=== PATIENT | female | born 1975 | race Asian ===

== ENCOUNTER 2018-10-01 07:25 | Inpatient (IN) | payer OTHER, SELFPAY ==
[2018-10-01 08:10] LABS: Bilirubin,Urine NEG (Negative); Blood,Urine SM (Negative); Color,Urine Yellow (Yellow); Mucus,Urine FEW /HPF; Urobilinogen,Urine < 2.0 mg/dL (<2.0)
[2018-10-01 08:12] LABS: HCG Qualitative,Urine Negative (Negative)
--- NOTE | 2018-10-01 08:13 | Emergency Department Report ---
ED Abdominal Pain HPI - General Chief Complaint: Abdominal Pain Stated Complaint: ABD PAIN/HEADACHES Time Seen by Provider: 10/01/18 08:05 Source: patient, family Mode of arrival: Ambulatory Limitations: Language Barrier - History of Present Illness Initial Comments: Patient is 43 years old female with no significant past medical history. Patient presented to the ER complaining of suprapubic pain for the last 4 days associated with fever and chills and increased urinary frequency, dysuria and urgency. Patient denied any hematuria, vaginal discharge or vaginal bleeding. She stated that her cycle started yesterday and it is regular. Patient denied any nausea, vomiting or diarrhea. MD Complaint: abdominal pain -: days(s) Location: suprapubic Radiation: none Migration to: no migration Quality: sharp Consistency: constant - Related Data Allergies Allergy/AdvReac Type Severity Reaction Status Date / Time No Known Allergies Allergy Verified 10/01/18 09:25 ED Review of Systems ROS: Stated complaint: ABD PAIN/HEADACHES Other details as noted in HPI Comment: All other systems reviewed and negative Constitutional: chills, fever ENT: denies: ear pain, throat pain Cardiovascular: denies: chest pain, palpitations, dyspnea on exertion, orthopnea, edema, syncope, paroxysmal nocturnal dyspnea Gastrointestinal: abdominal pain. denies: nausea, vomiting, diarrhea, constipation, hematemesis, melena, hematochezia Genitourinary: urgency, dysuria, frequency. denies: abnormal menses Neurological: denies: headache, weakness, numbness, paresthesias, confusion ED Past Medical Hx - Past Medical History Previous Medical History?: No - Surgical History Past Surgical History?: No - Social History Smoking Status: Never Smoker Substance Use Type: None ED Physical Exam - General Limitations: Language Barrier General appearance: alert, in no apparent distress - Head Head exam: Present: atraumatic, normocephalic, normal inspection - Eye Eye exam: Present: normal appearance - ENT ENT exam: Present: normal exam, normal orophraynx, mucous membranes moist - Neck Neck exam: Present: normal inspection, full ROM. Absent: tenderness, meningismus, lymphadenopathy, thyromegaly - Respiratory Respiratory exam: Present: normal lung sounds bilaterally. Absent: respiratory distress, wheezes, rales, rhonchi, stridor, chest wall tenderness, accessory muscle use, decreased breath sounds, prolonged expiratory - Cardiovascular Cardiovascular Exam: Present: regular rate, normal rhythm, normal heart sounds - GI/Abdominal GI/Abdominal exam: Present: soft, tenderness (right lower quadrant tenderness, suprapubic tenderness), normal bowel sounds. Absent: distended, guarding, rebound, rigid, diminished bowel sounds, organomegaly, mass, bruit, pulsatile mass, hernia - Extremities Exam Extremities exam: Present: normal inspection, full ROM, normal capillary refill. Absent: tenderness, pedal edema, joint swelling, calf tenderness - Back Exam Back exam: Present: normal inspection, full ROM. Absent: CVA tenderness (R), CVA tenderness (L), muscle spasm, paraspinal tenderness, vertebral tenderness, rash noted - Neurological Exam Neurological exam: Present: alert, oriented X3, CN II-XII intact, normal gait, reflexes normal - Skin Skin exam: Present: warm, intact, normal color ED Course Vital Signs 10/01/18 10/01/18 07:33 10:56 Temperature 99.1 F Pulse Rate 110 H Respiratory 18 16 Rate Blood Pressure 110/54 O2 Sat by Pulse 100 Oximetry - Consultations Consultation #1: 10/01/18 11:09 I discussed the patient with Dr. Easley, she had been advised to admit the patient to the hospital and she will follow-up with the patient. ED Medical Decision Making - Lab Data Result diagrams: 10/01/18 Unknown 10/01/18 Unknown - Radiology Data Radiology results: report reviewed Referring Physician: CHETAN WINN Patient Name: FEMI BRAND Date of : 1975 Sex: Female Report Date: 2018-10-01 Report Status: Finalized Findings [address] [address] Cat Scan Report Signed Patient: FEMI BRAND MR#: [id number] : 1975 Acct:[id number] Age/Sex: 43 / F ADM Date: 10/01/18 Loc: ED Attending Dr: Ordering Physician: CHETAN WINN Date of Service: 10/01/18 Procedure(s): CT abdomen pelvis w con Accession Number(s): [id number] cc: CHETAN WINN FINAL REPORT EXAM: CT ABDOMEN PELVIS W CON HISTORY: abdominal pain, right lower quadrant tenderness, TECHNIQUE: CT abdomen and pelvis performed. Images extend from diaphragm to pubic symphysis. IV contrast was administered. No oral contrast was administered. Axial images and coronal and sagittal reformatted images were obtained. PRIORS: None. FINDINGS: There prominent inflammatory changes in the right lower quadrant. There are extraluminal gas bubbles this area. Findings are compatible with ruptured acute appendicitis. Appendix margins are not well visualized. There is a 2 cm fluid collection in the right lower quadrant which could be a developing abscess. There is no gross free intraperitoneal air seen. The visualized liver, spleen, pancreas, adrenal glands and kidneys demonstrate no significant abnormalities. There is no abdominal aortic aneurysm. There is no evidence of intestinal obstruction. The bladder is unremarkable. IMPRESSION: Findings are compatible with ruptured acute appendicitis. There are extraluminal gas bubbles in the right lower quadrant but no gross free air seen. There is a 2 cm fluid collection which may be a developing small abscess. Transcribed By: CIERRA Dictated By: STEFANIE HERNANDEZ MD Electronically Authenticated By: STEFANIE HERNANDEZ MD Signed Date/Time: 10/01/181050 DD/ 53 TD/TT: 10/01/18 105 - Medical Decision Making Patient is 43 years old female with no significant past medical history. Patient presented to the ER complaining of suprapubic pain for the last 4 days associated with fever and chills and increased urinary frequency, dysuria and urgency. Patient denied any hematuria, vaginal discharge or vaginal bleeding. She stated that her cycle started yesterday and it is regular. Patient denied any nausea, vomiting or diarrhea. Patient found to have a rupture appendicitis. I discussed the patient is Dr. Easley. Patient received Rocephin initially and then Zosyn per . Discussed the patient is Dr. Veras, he agreed to admit the patient to medical service. Critical Care Time: Yes Critical care time in (mins) excluding proc time.: 30 Critical care attestation.: If time is entered above; I have spent that time in minutes in the direct care of this critically ill patient, excluding procedure time. ED Disposition Clinical Impression: Acute appendicitis with rupture Disposition: OP ADMIT IP TO THIS HOSP Is pt being admited?: Yes Condition: Stable Instructions: Abdominal Pain (ED) Referrals: PRIMARY CARE, [Primary Care Provider] - 3-5 Days
[2018-10-01] MEDS ORDERED: ZOFRAN IV ONE (08:15)
[2018-10-01] MEDS ORDERED: MORPHINE IV ONE (08:15)
[2018-10-01] MEDS ORDERED: NACL 0.9% 1000 ML 1,000 ML IV ONE (08:15)
[2018-10-01 09:09] LABS: Hematocrit 38.4 % (30.3-42.9); Hemoglobin 12.8 gm/dl (10.1-14.3); Mean Corpuscular HGB Conc 33 % (30-34); Mean Corpuscular Volume 94 fl (79-97); Platelet Count 251 K/mm3 (140-440); Red Cell Distribution Width 13.1 % (13.2-15.2)
[2018-10-01] MEDS ORDERED: ROCEPHIN/NS 1 GM/50 ML 1 GM/50 ML BAG IV ONE (09:15)
[2018-10-01 09:20] LABS: Calcium 8.9 mg/dL (8.4-10.2)
[2018-10-01 09:22] LABS: Alanine Aminotransferase 12 units/L (7-56); Albumin 3.8 g/dL (3.9-5)
[2018-10-01 09:29] LABS: Bilirubin,Direct < 0.2 mg/dL (0-0.2)
[2018-10-01 10:16] LABS: Band Neutrophils # (Manual) 0.2 K/mm3; Basophils % (Manual) 0 % (0.0-1.8); Eosinophils % (Manual) 0 % (0.0-4.3); Platelet Estimate Consistent w Auto; RBC Morphology Normal; Total Cells Counted 100
--- NOTE | 2018-10-01 10:51 | Cat Scan Report ---
FINAL REPORT EXAM: CT ABDOMEN PELVIS W CON HISTORY: abdominal pain, right lower quadrant tenderness, TECHNIQUE: CT abdomen and pelvis performed. Images extend from diaphragm to pubic symphysis. IV co ntrast was administered. No oral contrast was administered. Axial images and coronal and sagittal ref ormatted images were obtained. PRIORS: None. FINDINGS: There prominent inflammatory changes in the right lower quadrant. There are extraluminal g as bubbles this area. Findings are compatible with ruptured acute appendicitis. Appendix margins are not well visualized. There is a 2 cm fluid collection in the right lower quadrant which could be a de veloping abscess. There is no gross free intraperitoneal air seen. The visualized liver, spleen, pancreas, adrenal glands and kidneys demonstrate no significant abnorma lities. There is no abdominal aortic aneurysm. There is no evidence of intestinal obstruction. The bladder is unremarkable. IMPRESSION: Findings are compatible with ruptured acute appendicitis. There are extraluminal gas franco bles in the right lower quadrant but no gross free air seen. There is a 2 cm fluid collection which m ay be a developing small abscess.
[2018-10-01] MEDS ORDERED: ZOSYN/NS 3.375GM/50ML 3.375 GM/50 ML BAG IV ONE (11:09)
[2018-10-01] MEDS ORDERED: NACL 0.9% 1000 ML IV ONE (11:55)
[2018-10-01] MEDS ORDERED: TYLENOL PO PRN (11:55)
[2018-10-01] MEDS ORDERED: MORPHINE IV PRN (11:55)
[2018-10-01] MEDS ORDERED: ZOFRAN IV PRN (11:55)
[2018-10-01] MEDS ORDERED: PROVENTIL IH PRN (11:55)
[2018-10-01] MEDS ORDERED: SODIUM CHLORIDE FLUSH SYRINGE 10 ML IV PRN (11:55)
--- NOTE | 2018-10-01 11:58 | History and Physical Report ---
History of Present Illness Chief complaint: My stomach hurts History of present illness: 43 YO Female with Obesity presents to ED for evaluation. Pt is unable to speak turkmen, but her daughter is at bedside during exam and interview, and served as fulfillment coordinator. As per daughter, the patient states that she has experienced abdominal pain over the past 4 days with persistent symptoms over the same time frame. Pain is 10/10, sharp, crampy, nonradiating, localized to the RLQ, worsened with movement and palpation, improved with nonmovement. Pt acknowledges fever, chills, increased urinary frequency, dysuria and urgency. Patient denies BRBPR. Trauma, hematuria, vaginal discharge, ingestion of food/water from new or different sources, or recent ill contacts. Pt seen and evaluated in ED and found to have Acute appendicitis with rupture complicated by sepsis. Pt admitted to surgical floor, and initiated on Sepsis protocol. Surgical team consulted in ED. Past History Past Medical History: other (obesity) Past Surgical History: No surgical history, Other (reviewed) Social history: , lives with family. denies: smoking, alcohol abuse, prescription drug abuse Family history: no significant family history (reviewed) Medications and Allergies Allergies Allergy/AdvReac Type Severity Reaction Status Date / Time No Known Allergies Allergy Verified 10/01/18 09:25 Active Meds: Active Medications Acetaminophen (Tylenol) 650 mg PO Q4H PRN PRN Reason: Pain MILD(1-3)/Fever >100.5/CA Review of Systems Constitutional: fever, chills, no weight loss, no weight gain, no night sweats, no anorexia, no fatigue Ears, nose, mouth and throat: no ear pain, no ear discharge, no tinnitis, no decreased hearing, no nose pain Breasts: no change in shape, no swelling, no mass Cardiovascular: no chest pain, no orthopnea, no rapid/irregular heart beat, no edema Respiratory: no cough, no cough with sputum, no excessive sputum, no hemoptysis, no shortness of breath Gastrointestinal: abdominal pain, no nausea, no vomiting, no diarrhea, no constipation, no BRBPR, no melena, no hematochezia Genitourinary Female: no pelvic pain, no flank pain, no menorrhagia, no dysuria, no urinary frequency, no urgency Menstruation: currently menstrual Rectal: no pain, no incontinence, no bleeding Musculoskeletal: no neck stiffness, no neck pain, no shooting arm pain, no arm numbness/tingling, no low back pain Integumentary: no rash, no pruritis, no redness, no sores, no wounds Neurological: no transient paralysis, no paralysis, no weakness, no parathesias, no numbness, no tingling, no seizures, no tremors Psychiatric: no anxiety, no memory loss, no change in sleep habits, no sleep disturbances, no insomnia, no hypersomnia, no change in appetite Endocrine: no cold intolerance, no heat intolerance, no polyphagia, no excessive thirst, no nocturia Hematologic/Lymphatic: no easy bruising, no easy bleeding, no lymphadenopathy, no lymphedema Allergic/Immunologic: no urticaria, no persistent infections, no anaphylaxis, no angioedema Exam - Constitutional Vitals: Temp Pulse Resp BP Pulse Ox 99.1 F 110 H 16 110/54 100 10/01/18 07:33 10/01/18 07:33 10/01/18 10:56 10/01/18 07:33 10/01/18 07:33 General appearance: Present: mild distress - EENT Eyes: Present: PERRL ENT: hearing intact, clear oral mucosa - Neck Neck: Present: supple, normal ROM - Respiratory Respiratory effort: normal Respiratory: bilateral: CTA - Cardiovascular Heart Sounds: Present: S1 & S2. Absent: rub, click - Extremities Extremities: pulses symmetrical, No edema Peripheral Pulses: abnormal (capillary refill greater than 3.0 seconds) - Abdominal General gastrointestinal: Present: soft, non-tender, non-distended, normal bowel sounds Female genitourinary: Present: normal - Integumentary Integumentary: Present: clear, warm, dry - Musculoskeletal Musculoskeletal: gait normal, strength equal bilaterally - Psychiatric Psychiatric: appropriate mood/affect, intact judgment & insight - Neurologic Neurologic: CNII-XII intact, moves all extremities Results - Labs CBC & Chem 7: 10/01/18 Unknown 10/01/18 Unknown Labs: Abnormal lab results 10/01/18 10/01/18 10/01/18 Range/Units 07:47 08:14 Unknown WBC 17.1 H (4.5-11.0) K/mm3 RDW 13.1 L (13.2-15.2) % Seg Neuts % (Manual) 88.0 H (40.0-70.0) % Lymphocytes % (Manual) 5.0 L (13.4-35.0) % Seg Neutrophils # Man 15.0 H (1.8-7.7) K/mm3 Lymphocytes # (Manual) 0.9 L (1.2-5.4) K/mm3 Monocytes # (Manual) 1.0 H (0.0-0.8) K/mm3 Sodium (137-145) mmol/L Glucose (65-100) mg/dL POC Glucose 127 H (70-105) Albumin (3.9-5) g/dL Lipase (13-60) units/L Urine WBC (Auto) 7.0 H (0.0-6.0) /HPF 10/01/18 10/01/18 Range/Units Unknown Unknown WBC (4.5-11.0) K/mm3 RDW (13.2-15.2) % Seg Neuts % (Manual) (40.0-70.0) % Lymphocytes % (Manual) (13.4-35.0) % Seg Neutrophils # Man (1.8-7.7) K/mm3 Lymphocytes # (Manual) (1.2-5.4) K/mm3 Monocytes # (Manual) (0.0-0.8) K/mm3 Sodium 136 L (137-145) mmol/L Glucose 115 H (65-100) mg/dL POC Glucose (70-105) Albumin 3.8 L (3.9-5) g/dL Lipase 12 L (13-60) units/L Urine WBC (Auto) (0.0-6.0) /HPF Assessment and Plan - Patient Problems (1) Sepsis Current Visit: Yes Status: Acute Qualifiers: Sepsis type: sepsis due to unspecified organism Qualified Code(s): A41.9 - Sepsis, unspecified organism Plan to address problem: Sepsis protocol: IV antibiotic therapy, IVF resuscitation, monitor uop q shift, CBC, CMP, chest x ray, serial lactic acid, blood cultures, urinalysis. (2) Acute appendicitis with rupture Current Visit: Yes Status: Acute Plan to address problem: CT Abdomen pelvis, Surgery consulted in ED, (3) DVT prophylaxis Current Visit: Yes Status: Acute Plan to address problem: SCD to BLE while in bed.
[2018-10-01] MEDS ORDERED: SUBLIMAZE ONE (12:19)
[2018-10-01] MEDS ORDERED: VERSED ONE (12:19)
[2018-10-01] MEDS ORDERED: QUELICIN ONE (12:19)
[2018-10-01] MEDS ORDERED: ZEMURON IV ONE (12:19)
[2018-10-01] MEDS ORDERED: XYLOCAINE MPF 2% ONE (12:19)
[2018-10-01] MEDS ORDERED: ZOFRAN ONE (12:20)
[2018-10-01] MEDS ORDERED: ROBINUL ONE (12:20)
--- NOTE | 2018-10-01 12:45 | Consultation ---
History of Present Illness Consult date: 10/01/18 Chief complaint: abdominal pain - History of present illness History of present illness: 43 yo F with right lower quadrant abdominal pain x 4 days, sharp and crampy, nonradiating. She has never had pain like this before. She has not had n/v. +subjective fever. She denies dysuria. She states that 2 days ago the pain subsided and then started again. She had a few sips of water this am. No CP, SOB Past History Past Medical History: No medical history Past Surgical History: No surgical history Social history: no significant social history, , lives with family Family history: no significant family history Medications and Allergies Allergies Allergy/AdvReac Type Severity Reaction Status Date / Time No Known Allergies Allergy Verified 10/01/18 09:25 Active Meds: Active Medications Acetaminophen (Tylenol) 650 mg PO Q4H PRN PRN Reason: Pain MILD(1-3)/Fever >100.5/CA Albuterol (Proventil) 2.5 mg IH Q4HRT PRN PRN Reason: Shortness Of Breath Cefepime HCl (Maxipime/Ns 2 Gm/100 Ml) 2 gm in 100 mls @ 200 mls/hr IV Q8HR SHAILESH; Protocol Metronidazole (Flagyl 500 Mg/100 Ml) 500 mg in 100 mls @ 100 mls/hr IV Q8HR SHAILESH; Protocol Morphine Sulfate (Morphine) 2 mg IV Q4H PRN PRN Reason: Pain, Moderate (4-6) Ondansetron HCl (Zofran) 4 mg IV Q8H PRN PRN Reason: Nausea And Vomiting Sodium Chloride (Sodium Chloride Flush Syringe 10 Ml) 10 ml IV BID SHAILESH Sodium Chloride (Sodium Chloride Flush Syringe 10 Ml) 10 ml IV PRN PRN PRN Reason: LINE FLUSH Review of Systems All systems: negative (10 pt ROS performed and negative except for that listed in HPI) Exam Vital Signs Temp Pulse Resp BP Pulse Ox 99.1 F 110 H 18 110/54 100 10/01/18 07:33 10/01/18 07:33 10/01/18 07:33 10/01/18 07:33 10/01/18 07:33 Narrative exam: Gen: AAOx3. mild distress due to abdominal pain ENT: no scleral icterus or conjunctival pallor CV: s1, s2+ resp: even and unlabored Abd: soft, ND, + RLQ and suprapubic TTP with voluntary guarding and rebound. No rigidity. Ext: no c/c/e Results - Labs 10/01/18 Unknown 10/01/18 Unknown Abnormal lab results 10/01/18 10/01/18 10/01/18 Range/Units 07:47 08:14 Unknown WBC 17.1 H (4.5-11.0) K/mm3 RDW 13.1 L (13.2-15.2) % Seg Neuts % (Manual) 88.0 H (40.0-70.0) % Lymphocytes % (Manual) 5.0 L (13.4-35.0) % Seg Neutrophils # Man 15.0 H (1.8-7.7) K/mm3 Lymphocytes # (Manual) 0.9 L (1.2-5.4) K/mm3 Monocytes # (Manual) 1.0 H (0.0-0.8) K/mm3 Sodium (137-145) mmol/L Glucose (65-100) mg/dL POC Glucose 127 H (70-105) Albumin (3.9-5) g/dL Lipase (13-60) units/L Urine WBC (Auto) 7.0 H (0.0-6.0) /HPF 10/01/18 10/01/18 Range/Units Unknown Unknown WBC (4.5-11.0) K/mm3 RDW (13.2-15.2) % Seg Neuts % (Manual) (40.0-70.0) % Lymphocytes % (Manual) (13.4-35.0) % Seg Neutrophils # Man (1.8-7.7) K/mm3 Lymphocytes # (Manual) (1.2-5.4) K/mm3 Monocytes # (Manual) (0.0-0.8) K/mm3 Sodium 136 L (137-145) mmol/L Glucose 115 H (65-100) mg/dL POC Glucose (70-105) Albumin 3.8 L (3.9-5) g/dL Lipase 12 L (13-60) units/L Urine WBC (Auto) (0.0-6.0) /HPF Diabetes panel 10/01/18 10/01/18 Range/Units Unknown Unknown Sodium 136 L (137-145) mmol/L Potassium 4.1 (3.6-5.0) mmol/L Chloride 99.5 (98-107) mmol/L Carbon Dioxide 24 (22-30) mmol/L BUN 9 (7-17) mg/dL Creatinine 1.1 (0.7-1.2) mg/dL Glucose 115 H (65-100) mg/dL Calcium 8.9 (8.4-10.2) mg/dL AST 15 (5-40) units/L ALT 12 (7-56) units/L Alkaline Phosphatase 108 (35-129) units/L Total Protein 7.5 (6.3-8.2) g/dL Albumin 3.8 L (3.9-5) g/dL Calcium panel 10/01/18 10/01/18 Range/Units Unknown Unknown Calcium 8.9 (8.4-10.2) mg/dL Albumin 3.8 L (3.9-5) g/dL Pituitary panel 10/01/18 Range/Units Unknown Sodium 136 L (137-145) mmol/L Potassium 4.1 (3.6-5.0) mmol/L Chloride 99.5 (98-107) mmol/L Carbon Dioxide 24 (22-30) mmol/L BUN 9 (7-17) mg/dL Creatinine 1.1 (0.7-1.2) mg/dL Glucose 115 H (65-100) mg/dL Calcium 8.9 (8.4-10.2) mg/dL Adrenal panel 10/01/18 10/01/18 Range/Units Unknown Unknown Sodium 136 L (137-145) mmol/L Potassium 4.1 (3.6-5.0) mmol/L Chloride 99.5 (98-107) mmol/L Carbon Dioxide 24 (22-30) mmol/L BUN 9 (7-17) mg/dL Creatinine 1.1 (0.7-1.2) mg/dL Glucose 115 H (65-100) mg/dL Calcium 8.9 (8.4-10.2) mg/dL Total Bilirubin 0.80 (0.1-1.2) mg/dL AST 15 (5-40) units/L ALT 12 (7-56) units/L Alkaline Phosphatase 108 (35-129) units/L Total Protein 7.5 (6.3-8.2) g/dL Albumin 3.8 L (3.9-5) g/dL - Imaging CT scan - abdomen: report reviewed, image reviewed CT scan - pelvis: report reviewed, image reviewed Assessment and Plan 43 yo F with acute appendicitis with perforation Plan; 1. NPO 2. IVF 3. IV abx - zosyn 4. prn pain and nausea control 5. DVT ppx 6. for OR today for laparoscopic appendectomy, possible open - I discussed this with the patient using the oil and gas drafter line. All risks, benefits, and alternatives were discussed and consent obtained. All questions answered. Thank you, please call with questions.
[2018-10-01] MEDS ORDERED: DIPRIVAN 10 MG/ML IV ONE (12:54)
--- NOTE | 2018-10-01 13:16 | Anesthesia Consultation ---
Anesthesia Consult and Med Hx Date of service: 10/01/18 - Airway Anesthetic Teeth Evaluation: Good ROM Head & Neck: Adequate Mental/Hyoid Distance: Adequate Mallampati Class: Class II Intubation Access Assessment: Probably Good - Pre-Operative Health Status ASA Pre-Surgery Classification: ASA1, Emergency
--- NOTE | 2018-10-01 13:21 | Anesthesia Day of Surgery ---
Anesthesia Day of Surgery - Day of Surgery Patient Examined: Yes Patient H&P Reviewed: Yes Patient is NPO: Yes
[2018-10-01] MEDS ORDERED: MAXIPIME/NS 2 GM/100 ML 2 GM/100 ML BAG IV SCH (14:00)
[2018-10-01] MEDS ORDERED: FLAGYL 500 MG/100 ML 500 MG/100 ML BAG IV SCH (14:00)
[2018-10-01] MEDS ORDERED: AMIDATE IV ONE (14:03)
[2018-10-01] MEDS ORDERED: NACL 0.9% 1000 ML 1,000 ML ONE (14:56)
--- NOTE | 2018-10-01 15:30 | Post Operative Note ---
Pre-op diagnosis: acute perforated appendicitis Post-op diagnosis: same Findings: perforated appendicitis towards the mid to distal body of the appendix, thickened and inflamed mesentery, small abscess and fibrinous exudate Procedure: laparoscopic appendectomy Anesthesia: GETA, other (black) Surgeon: SKIP GIBBS Estimated blood loss: minimal Pathology: list (appendix) Specimen disposition: to lab Condition: stable Disposition: PACU
[2018-10-01] MEDS ORDERED: DILAUDID IV PRN (15:33)
[2018-10-01] MEDS: ZOSYN/NS 4.5GM/100ML 4.5 GM/100 ML VIAL IV SCH ×2 (17:30→23:12)
[2018-10-02] MEDS: NACL 0.9% 1000 ML 1,000 ML IV SCH ×2 (00:12→05:34)
[2018-10-02] MEDS: SODIUM CHLORIDE FLUSH SYRINGE 10 ML IV SCH ×2 (00:13→20:17)
[2018-10-02] MEDS: ZOSYN/NS 4.5GM/100ML 4.5 GM/100 ML VIAL IV SCH ×3 (05:35→18:37)
[2018-10-02 08:25] LABS: Hematocrit 34.3 % (30.3-42.9); Hemoglobin 11.5 gm/dl (10.1-14.3); Mean Corpuscular HGB Conc 33 % (30-34); Mean Corpuscular Volume 95 fl (79-97); Platelet Count 213 K/mm3 (140-440); Red Blood Count 3.61 M/mm3 (3.65-5.03); Red Cell Distribution Width 13.5 % (13.2-15.2)
[2018-10-02 08:44] LABS: BUN/Creatinine Ratio 13; Blood Urea Nitrogen 9 mg/dL (7-17); Calcium 7.4 mg/dL (8.4-10.2); Hemolysis Index 10
--- NOTE | 2018-10-02 12:00 | Operative Report ---
PREOPERATIVE DIAGNOSIS: Acute perforated appendicitis. POSTOPERATIVE DIAGNOSIS: Acute perforated appendicitis. FINDINGS: Perforated appendicitis towards the mid to distal body of the appendix, thickened and inflamed mesentery and small abscess and fibrinous exudates of the right lower abdominal wall. PROCEDURE: Laparoscopic appendectomy. ANESTHESIA: General endotracheal anesthesia, nerve block. SURGEON: Neha Easley DO ESTIMATED BLOOD LOSS: Minimal. PATHOLOGY: Appendix specimen, disposition to lab. CONDITION: Stable. DISPOSITION: To PACU. HISTORY OF PRESENT ILLNESS: The patient is a 43-year-old Uzbek speaking female who presented to the Emergency Room with complaints of 4 days of right lower quadrant abdominal pain. She had a leukocytosis on labs and a CT scan of the abdomen and pelvis showed a perforated appendicitis without abscess. Based on all these findings, appendectomy is recommended. I discussed all risks, benefits, alternatives to surgery using the [employer] Speech[employer] polisher line with the patient as well as her family at the bedside. All questions were answered. Consent was obtained. PROCEDURE IN DETAIL: The patient was identified in the preoperative area, taken back to the operating room and placed on the operating table in supine position. After anesthesia was induced, a Cox catheter was sterilely placed by the circulating nurse. The abdomen was then prepped and draped in the usual sterile fashion and a timeout performed. A Veress needle was placed through the umbilicus and positioning of the Veress needle confirmed using a saline drop test. The abdomen was then insufflated to 15 mmHg. A 5 mm supraumbilical incision was then made using an 11 blade. Through this, a 5 mm Optiview trocar was inserted under direct visualization. The abdomen was inspected and there was no underlying injury to any of the abdominal contents. The Veress needle was withdrawn. I then turned my attention to the right lower quadrant. There was evidence of inflammation and adherence of the cecum to the right lower abdominal wall. The patient was tilted to the left and placed in Trendelenburg position. An additional 5 mm suprapubic and 12 mm left lower quadrant trocars were placed under direct visualization. The cecum was grasped and retracted medially and the inflammatory adhesions to the abdominal wall were broken up using blunt dissection. Once these adhesions were freed, there was some fibrinous material and a tiny abscess attached to the abdominal wall, which was evacuated. The appendix was visualized and appeared very inflamed in the mid and distal body. The mesentery was very thickened and inflamed as well. There was evidence of a small perforation at the mid to distal body of the appendix without gross spillage of bowel contents. Due to the severe inflammation in the mid and distal body of the appendix, it was decided to create a window at the base of the appendix. A [place] dissector was used to create a window between the mesocolon appendix and the appendix at the base. Using an [employer] flex 45 mm white load stapler, the base of the appendix was transected. Then, I ligated the mesentery using the Harmonic scalpel. The appendix was then placed into an EndoCatch bag and placed in the left lower quadrant. The right lower quadrant was irrigated with saline. Hemostasis was ensured at the staple line and at the mesentery. The patient was then placed into neutral position. A 19-Maltese Diallo drain was placed in the right lower quadrant and brought out through the suprapubic 5 mm trocar. This was sutured into place using a 2-0 nylon stitch. The appendix was then removed and passed off the table as a specimen. The 12 mm port fascia was closed with 0 Vicryl interrupted suture using the Yung-Otilio device. The abdomen was then desufflated and the skin incisions closed with 4-0 Monocryl subcuticular stitches and skin glue. A drain sponge was placed around the drain and secured with a Tegaderm. The Cox catheter was removed. The patient was awoken from anesthesia and extubated and taken to PACU in stable condition. At the end of the case, all sponge, instrument, sharp counts were correct x 2. JOB# [id number] NIYA/JUAN CARLOS ROCHA
[2018-10-02] MEDS: PERCOCET 5/325 PO PRN ×2 (13:06→22:03)
[2018-10-02] MEDS ORDERED: NACL 0.9% 500 ML 500 ML IV ONE (13:08)
--- NOTE | 2018-10-02 13:33 | Progress Note ---
Assessment and Plan 43 yo F s/p laparoscopic appendectomy POD 1 Plan: 1. Pt will likely have an ileus from perforated appendicitis. will monitor. adv to reg diet 2. change to maintenance IVF 3. 500cc bolus now for low BP 4. prn PO pain meds - ok to give one dose of percocet and monitor 5. JANICE drain - monitor output. will dc prior to discharge 6. continue abx 7. DVT ppx 8. IS/pulm toilet 9. OOB/ambulate 10. will follow up in am Thank you, please call with questions. Subjective Date of service: 10/02/18 Narrative: Pt seen and examined. c/o epigastric discomfort and incisional pain near JANICE drain. No f/c. Tolerating reg diet. No n/v. Has not had pain medication today. BP has been low but patient is asymptomatic. Objective Vital Signs - 12hr 10/02/18 10/02/18 10/02/18 05:18 07:11 07:45 Temperature 97.9 F 97.8 F Pulse Rate 66 63 Respiratory 16 20 Rate Blood Pressure 97/47 84/47 O2 Sat by Pulse 98 99 99 Oximetry - General physical appearance Narrative Exam: Gen: AAOx3. NAD CV: s1, S2+ Resp: even and unlabored Abd: soft, ND, + incisional TTP. + epigastric TTP. no r/r/g. incisions are c/d/i. JANICE drain serosang Ext: no c/c/e - Labs 10/02/18 08:08 10/02/18 08:08 Diabetes panel 10/02/18 Range/Units 08:08 Sodium 140 (137-145) mmol/L Potassium 4.0 (3.6-5.0) mmol/L Chloride 110.4 H (98-107) mmol/L Carbon Dioxide 18 L (22-30) mmol/L BUN 9 (7-17) mg/dL Creatinine 0.7 (0.7-1.2) mg/dL Glucose 160 H (65-100) mg/dL Calcium 7.4 L D (8.4-10.2) mg/dL Calcium panel 10/02/18 Range/Units 08:08 Calcium 7.4 L D (8.4-10.2) mg/dL Pituitary panel 10/02/18 Range/Units 08:08 Sodium 140 (137-145) mmol/L Potassium 4.0 (3.6-5.0) mmol/L Chloride 110.4 H (98-107) mmol/L Carbon Dioxide 18 L (22-30) mmol/L BUN 9 (7-17) mg/dL Creatinine 0.7 (0.7-1.2) mg/dL Glucose 160 H (65-100) mg/dL Calcium 7.4 L D (8.4-10.2) mg/dL Adrenal panel 10/02/18 Range/Units 08:08 Sodium 140 (137-145) mmol/L Potassium 4.0 (3.6-5.0) mmol/L Chloride 110.4 H (98-107) mmol/L Carbon Dioxide 18 L (22-30) mmol/L BUN 9 (7-17) mg/dL Creatinine 0.7 (0.7-1.2) mg/dL Glucose 160 H (65-100) mg/dL Calcium 7.4 L D (8.4-10.2) mg/dL
[2018-10-02] MEDS: D5/0.45NS 1,000 ML IV SCH (15:02)
--- NOTE | 2018-10-02 17:52 | Progress Note ---
Assessment and Plan - Patient Problems (1) Acute appendicitis with rupture Current Visit: Yes Status: Acute Plan to address problem: S/p Appendectomy -perforated Postop doing well Subjective Date of service: 10/02/18 Principal diagnosis: perforated Appendicitis Interval history: S/p Appendectomy Postop doing well Objective - Constitutional Vitals: Vital Signs - 12hr 10/02/18 10/02/18 07:11 07:45 Temperature 97.8 F Pulse Rate 63 Respiratory 20 Rate Blood Pressure 84/47 O2 Sat by Pulse 99 99 Oximetry General appearance: Present: no acute distress, well-nourished - EENT Eyes: PERRL, EOM intact ENT: hearing intact, clear oral mucosa Ears: bilateral: normal - Neck Neck: supple, normal ROM - Respiratory Respiratory effort: normal Respiratory: bilateral: CTA - Breasts Breasts: normal - Cardiovascular Rhythm: regular Heart Sounds: Present: S1 & S2. Absent: gallop, rub Extremities: pulses intact, No edema, normal color, Full ROM - Gastrointestinal General gastrointestinal: Present: soft, non-tender, non-distended, normal bowel sounds - Genitourinary Female genitourinary: normal - Integumentary Integumentary: clear, warm, dry - Musculoskeletal Musculoskeletal: 1, strength equal bilaterally - Neurologic Neurologic: moves all extremities - Psychiatric Psychiatric: memory intact, appropriate mood/affect, intact judgment & insight - Labs CBC & Chem 7: 10/02/18 08:08 10/02/18 08:08 Labs: Abnormal lab results 10/02/18 10/02/18 Range/Units 08:08 08:08 RBC 3.61 L (3.65-5.03) M/mm3 Chloride 110.4 H (98-107) mmol/L Carbon Dioxide 18 L (22-30) mmol/L Glucose 160 H (65-100) mg/dL Calcium 7.4 L D (8.4-10.2) mg/dL
[2018-10-03] MEDS: ZOSYN/NS 4.5GM/100ML 4.5 GM/100 ML VIAL IV SCH ×2 (00:05→05:07)
[2018-10-03] MEDS: SODIUM CHLORIDE FLUSH SYRINGE 10 ML IV SCH ×2 (00:06→10:38)
[2018-10-03] MEDS ORDERED: BENADRYL IV ONE (03:35)
[2018-10-03] MEDS: D5/0.45NS 1,000 ML IV SCH (10:37)
--- NOTE | 2018-10-03 11:39 | Discharge Summary ---
Providers - Providers Date of Admission: 10/01/18 13:15 Date of discharge: 10/03/18 Attending physician: FRANCIE WILLARD 10/01/18 11:48 Consult to Physician [CONS] Stat Comment: DR GIBBS NOTIFIED [id number] Consulting Provider: SKIP GIBBS Physician Instructions: Reason For Exam: rupture appendicitis Primary care physician: MOLD CLEANER Hospitalization Condition: Stable Hospital course: Patient is a 43 yo who speaks little [place] (her daughter Christin was the [employer]or per patient wishes) without chronic medical condition who presents to [facility] ED with abdominal pains. She was found to have acute appendicitis with perforation and underwent s/p laparoscopic appendectomy 10/01/18 -Acute appendicitis with perforation -Ileus -Hypotension, responds to ivf, so educated on increase hydration Disposition: DC-01 TO HOME OR SELFCARE Time spent for discharge: 36 minutes Core Measure Documentation - Palliative Care Palliative Care/ Comfort Measures: Not Applicable - Core Measures Any of the following diagnoses?: none - VTE Discharge Requirements Deep Vein Thrombosis/Pulmonary Embolism Present on Admission: No Has pt received <5 days of overlap therapy or INR<2.0: No Anticoagulant overlap therapy prescribed at discharge: No Contraindication No Overlap Therapy order at DC: Not Indicated Exam - Physical Exam Narrative exam: Gen: WDWN, NAD, Awake, Alert, Orientated HEENT: NCAT, EOMI, PERRL, OP Clear Neck: supple, no adenopathy, no thyromegaly, no JVD CVS/Heart: RRR, normal S1S2, pulses present bilaterally Chest/Lungs: CTA B, Symmetrical chest expansion, good air entry bilaterally GI/Abdomen: soft, NTND, good bowel sounds, no guarding or rebound /Bladder: no suprapubic tenderness, no CVA or paraspinal tenderness Extermity/Skin: no c/c/e, no obvious rash MSK: FROM x 4 Neuro: CN 2-12 grossly intact, no new focal deficits Psych: calm - Constitutional Vitals: Temp Pulse Resp BP Pulse Ox 97.4 F L 60 18 93/54 94 10/03/18 07:43 10/03/18 07:43 10/03/18 07:43 10/03/18 07:43 10/03/18 09:29 Plan Activity: other (no strenous activity until cleared by surgeon) Diet: clear liquids (for 2-3 days then advance to soft diet), advance as tolerated Follow up with: SKIP GIBBS DO [Staff Physician] - 14 Days [facility] [Provider Group] - 7 Days Prescriptions: Amoxicillin/Potassium Clav [Augmentin 875-125 Tablet] 1 each PO BID #14 tablet HYDROcodone/APAP 5-325 [[place] 5/325] 1 each PO Q4HR PRN #20 tablet PRN Reason: Pain
[2018-10-03 11:52] VITALS: BP 88/54
[2018-10-03] MEDS ORDERED: NORCO 5/325 PO PRN (12:00)
--- NOTE | 2018-10-03 12:57 | Progress Note ---
Assessment and Plan 43 yo F s/p laparoscopic appendectomy POD 2 Plan: 1. reg diet 2. dc IVF 3. dc IV abx -> will transition to oral augmentin on dc 4. prn PO pain meds 5. JANICE drain serous - removed 6. IS/pulm toilet 7. OOB/ambulate 8. ok to dc from surgery standpoint. RX for norco and augmentin left on chart in addition to printed dc instructions. Pt instructed to follow up in surgery office in 2 weeks. D/W Dr. Fernandez Thank you, please call with questions. Subjective Date of service: 10/03/18 Narrative: Pt seen and examined. Feels well. Decreased appetite but tolerating a reg diet. Pain is better controlled. Ambulating. Objective Vital Signs - 12hr 10/03/18 10/03/18 10/03/18 04:13 07:43 09:29 Temperature 97.5 F L 97.4 F L Pulse Rate 54 L 60 Respiratory 17 18 Rate Blood Pressure 88/51 93/54 O2 Sat by Pulse 93 89 94 Oximetry 10/03/18 10/03/18 10/03/18 10:52 11:00 12:32 Temperature 97.9 F Pulse Rate 68 Respiratory 20 20 Rate Blood Pressure 88/54 O2 Sat by Pulse 95 Oximetry - General physical appearance Narrative Exam: Gen: AAOx3. NAD CV: S1, S2+ Resp; even and unlabored Abd: soft NT, ND. incisions c/d/i. JANICE serous. JANICE drain and skin suture removed. Ext: no c/c/e - Labs 10/02/18 08:08 10/02/18 08:08
== END 2018-10-03 15:06 | disposition home or self-care (01) | DRG 853 ==
LOC: ED 07:25 → OR 13:13 → 3A 13:15 → 3B-SURG 18:53
PROVIDERS: ADMIT Internal Medicine; ATTEND Internal Medicine
PROC: 0DTJ4ZZ Resection of Appendix, Percutaneous Endoscopic Approach (ICD-10-PCS; principal; 2018-10-01)
DX: A41.9 Sepsis, unspecified organism (principal); K35.32 Acute appendicitis with perforation, localized peritonitis, and gangrene, without abscess; K56.7 Ileus, unspecified; L02.211 Cutaneous abscess of abdominal wall; K66.0 Peritoneal adhesions (postprocedural) (postinfection); E66.9 Obesity, unspecified; Z68.33 Body mass index [BMI] 33.0-33.9, adult
CPT/HCPCS: 36415; 74177; 80048; 80076; 81001; 81025; 82140; 82962; 83690; 85007; 85025; 85027; 87040; 88304; 96361; 96365; 96375; G0378; J0330; J0696; J1170; J1200; J2250; J2270; J2405; J2543; J2704; J3010; J7030; J7040; Q9967